=== PATIENT | male | born 1970 | race Two or more races ===

== ENCOUNTER 2017-07-05 07:08 | Emergency (ER) | payer SELFPAY ==
[2017-07-05] MEDS ORDERED: Bupivacaine 0.5% 10 ML SDV INJECT ONE (08:13)
[2017-07-05] MEDS ORDERED: Lidocaine 1% with EPINEPHrine 1:100,000 20 ML MDV INJECT ONE (08:13)
[2017-07-05] MEDS ORDERED: Colchicine 0.6 MG Tab PO ONE ×2 (09:56→10:05)
[2017-07-05] MEDS ORDERED: Cephalexin 500 MG Cap PO ONE (09:56)
--- NOTE | 2017-07-05 09:58 | EDM.PDOC ---
ED HPI GENERAL MEDICAL PROBLEM - General Chief Complaint: Lower Extremity Injury/Pain Stated Complaint: RT FOOT PAIN Time Seen by Provider: 07/05/17 07:45 Source of Information: Reports: Patient, Other (Friend/coworker) History Limitations: Reports: Language Barrier (Patient's friend acted as an final inspector balance wheel) - History of Present Illness INITIAL COMMENTS - FREE TEXT/NARRATIVE: The patient states that he developed right first MTP joint pain yesterday afternoon, 07/04/2017, and that it has been getting worse. No prior similar symptoms. No recent injury to the foot. The patient has been taking aspirin. The patient does not have a PCP. Right 1-Hallux Pain Score (Numeric/FACES): 8 - Related Data Allergies Allergy/AdvReac Type Severity Reaction Status Date / Time No Known Allergies Allergy Verified 07/05/17 07:40 Home Meds: Home Meds Cephalexin [Keflex] 1 cap PO Q6HR #11 cap 07/05/17 [Rx] Lisinopril 40 mg PO DAILY 07/05/17 [History] Past Medical History Cardiovascular History: Reports: Hypertension Social & Family History - Tobacco Use Smoking Status *Q: Never Smoker - Caffeine Use Caffeine Use: Reports: Coffee - Recreational Drug Use Recreational Drug Use: No Review of Systems - Review of Systems Review Of Systems: ROS reveals no pertinent complaints other than HPI. ED EXAM, GENERAL - Physical Exam Exam: See Below Exam Limited By: No Limitations General Appearance: Alert, WD/WN, No Apparent Distress Extremities: Other (Mild to moderate swelling of the right first MTP joint, when compared to the left. There is associated erythema. There is tenderness particularly to palpation of the joint. PROM induces pain, although not as bad as direct palpation of the joint. Neurovascular status of the right foot is intact.) ED JOINT ASPIRATION PROCEDURE - Joint Apsiration/Arthrocentesis Site: Right 1st MTP joint Skin prep: Providone-Iodine (Betadine) Local anesthesia: Lidocaine: 1% with EPI (50:50 admixture) Local Anesthesia - Bupivicaine (Marcaine): 0.5% Plain (50:50 admixture) Local Anesthetic Volume: 2cc Aspiration needle size: 18g Aspirate appearance: bloody Dressing: adhesive dressing Complications: No Progress/Comments: No synovial fluid aspirated Course - Vital Signs Last Recorded V/S: Last Vital Signs Temp 36.3 C 07/05/17 07:38 Pulse 81 12/20/17 07:38 Resp 16 07/05/17 07:38 BP 138/96 H 07/05/17 07:38 Pulse Ox 95 07/05/17 07:38 - Orders/Labs/Meds Meds: Medications Discontinued Medications Generic Name Dose Route Start Last Admin Trade Name Mario PRN Reason Stop Dose Admin Bupivacaine HCl 10 ml 07/05/17 08:13 07/05/17 08:20 Sensorcaine-Mpf 0.5% INJECT 07/05/17 08:14 10 ml ONETIME ONE Administration Cephalexin 500 mg 07/05/17 09:56 07/05/17 10:11 Keflex PO 07/05/17 09:57 500 mg ONETIME ONE Administration Colchicine 0.6 mg 07/05/17 09:56 07/05/17 10:11 Colcrys PO 07/05/17 09:57 0.6 mg ONETIME ONE Administration Colchicine 0.6 mg 07/05/17 10:05 07/05/17 10:11 Colcrys PO 07/05/17 10:06 0.6 mg ONETIME ONE Administration Lidocaine/Epinephrine 20 ml 07/05/17 08:13 07/05/17 08:20 Xylocaine 1% With Epinephrine 1:100,000 INJECT 07/05/17 08:14 20 ml ONETIME ONE Administration - Re-Assessments/Exams Free Text/Narrative Re-Assessment/Exam: 07/05/17 10:01 I attempted to aspirate the patient's right first MTP joint. After the site was cleaned with Betadine and sterile drapes were placed, the site was anesthetized with a 50:50 admixture of lidocaine 1% with epinephrine and bupivacaine 0.5% without epinephrine. With a nurse Ericka pulling traction on the toe in a plantarflexion fashion, I attempted to aspirate the joint using an 18-gauge needle. I only recovered a small amount of blood, and no synovial fluid. Clinically, the patient has podagra. I will treat him with colchicine 1.2 mg now , then 0.6 mg in one hour. I would then have him take [id number] ibuprofen as needed. I strongly doubt that he has an associated infection, however, there is local redness and swelling (as would be expected with podagra) , however, as I was not able to recover any joint fluid, I will treat the patient for a possible infection with a 3 day course of Keflex. Departure - Departure Time of Disposition: 10:08 Disposition: Home, Self-Care 01 Condition: Good Clinical Impression: Podagra - Discharge Information Prescriptions: Cephalexin [Keflex] 1 cap PO Q6HR #11 cap Instructions: Gout, [id number] Referrals: PCP,None [Primary Care Provider] - Jones Martinez MD [Physician] - Forms: ED Department Discharge Additional Instructions: You were seen in the emergency room for pain, swelling, and redness of your right big toe joint. You are MOST LIKELY suffering from podagra = gout of the big toe joint. You have been started on the anti-gout medicine colchicine. Take your second dose at approximately 11:15 this morning. While it is highly unlikely that you have an infection, to be on the safe side, you have been started on the antibiotic Keflex. Take one tablet every 6 hours, as prescribed. Finish the entire prescription unless told otherwise by a doctor. You may take [id number] ibuprofen (Motrin, Advil) 2-3 tablets (400-600 mg ) every 8 hours, with food, as needed for pain. If your symptoms continue, please follow-up with the Orthopedic Surgeon Dr. Martinez. If any other problems, please do not hesitate to return to the ER.
== END 2017-07-05 10:25 | disposition home or self-care (01) ==
LOC: JD.ED 07:08
DX: M10.9 Gout, unspecified (principal); I10 Essential (primary) hypertension; Z79.899 Other long term (current) drug therapy
CPT/HCPCS: 20605; 99283; A9270; 20600; 20610